=== PATIENT | female | born 1955 | race Caucasian/White ===

== ENCOUNTER 2017-12-03 10:01 | Emergency (ER) | payer MEDICARE, BC ==
[2017-12-03] MEDS: SOD CHLORIDE 0.9% 1,000 ML IV (10:21)
[2017-12-03] MEDS: LORAZEPAM 2 MG INJ IV (10:21)
[2017-12-03] MEDS: LEVETIRACETAM 1000 MG (PMX) 100 ML IVPB (10:23)
[2017-12-03 10:34] LABS: ADD MAN DIFF? NO
[2017-12-03 10:35] LABS: WHITE BLOOD COUNT 13.1 10^3/ul (4.8-10.8)
[2017-12-03 10:35] LABS: ABNORMAL IP MESSAGE 1; BASOPHIL # 0.1 10^3/ul (0.0-0.1); BASOPHILS % 0.8 % (0.0-2.0); EOSINOPHILS # 0.1 10^3/ul (0.0-0.5); EOSINOPHILS % 0.5 % (0.0-7.0); HEMATOCRIT 34.9 % (37.0-47.0); HEMOGLOBIN 11.9 g/dl (12.0-16.0); LYMPHOCYTES # 6.6 10^3/ul (0.8-2.9); LYMPHOCYTES % 50.5 % (15.0-51.0); MEAN CORPUSCULAR HEMOGLOBIN 30.7 pg (29.0-33.0); MEAN CORPUSCULAR HGB CONC 34.1 g/dl (32.0-37.0); MEAN CORPUSCULAR VOLUME 89.9 fl (82.0-101.0); MEAN PLATELET VOLUME 8.7 fl (7.4-10.4); MONOCYTE # 0.7 10^3/ul (0.3-0.9); MONOCYTES % 5.7 % (0.0-11.0); NEUTROPHIL # 5.5 10^3/ul (1.6-7.5); PLATELET COUNT 408 10^3/UL (140-415); RED BLOOD COUNT 3.88 10^6/ul (4.20-5.40); RED CELL DISTRIBUTION WIDTH 12.6 % (11.5-14.5)
[2017-12-03 10:36] LABS: POSITIVE DIFF @See below
[2017-12-03 10:50] LABS: INR 0.95; PROTIME 12.8 Sec (11.9-14.9)
[2017-12-03] MEDS: ONDANSETRON 4 MG INJ IV ×2 (11:06→14:35)
[2017-12-03] MEDS: HYDROmorphONE 1 MG/ML SYG IV ×2 (11:06→14:35)
[2017-12-03 12:04] LABS: ALANINE AMINOTRANSFERASE 27 IU/L (13-69); ALBUMIN 4.3 g/dl (3.3-4.9); ALBUMIN/GLOBULIN RATIO 1.72; ALKALINE PHOSPHATASE 106 IU/L (42-121); ANION GAP 21 (8-16); ASPARTATE AMINO TRANSFERASE 24 IU/L (15-46); BILIRUBIN,INDIRECT 0.2 mg/dl (0-1.1); BILIRUBIN,TOTAL 0.2 mg/dl (0.2-1.3); BLOOD UREA NITROGEN 12 mg/dl (7-20); CALCIUM 9.3 mg/dl (8.4-10.2); CARBON DIOXIDE 19 mmol/L (21-31); CHLORIDE 103 mmol/L (97-110); CREATININE 0.59 mg/dl (0.44-1.00); GLUCOSE 119 mg/dl (70-220); POTASSIUM 4.3 mmol/L (3.5-5.1); SODIUM 139 mmol/L (135-144); TOTAL PROTEIN 6.8 g/dl (6.1-8.1)
[2017-12-03 12:19] LABS: TROPONIN-I < 0.012 ng/ml (0.00-0.12)
== END 2017-12-03 15:32 | disposition home or self-care (01) ==
LOC: E/R 10:01
DX: R56.9 Unspecified convulsions (principal); R40.2252 Coma scale, best verbal response, oriented, at arrival to emergency department; R40.2142 Coma scale, eyes open, spontaneous, at arrival to emergency department; R40.2362 Coma scale, best motor response, obeys commands, at arrival to emergency department; R07.9 Chest pain, unspecified; Z85.118 Personal history of other malignant neoplasm of bronchus and lung; Z87.891 Personal history of nicotine dependence
CPT/HCPCS: 70450; 80053; 84484; 85025; 85610; 93005; 96374; 96375; 96376; 99285-25

== ENCOUNTER 2018-02-22 14:00 | Inpatient (IN) | payer MEDICARE, BC ==
[2018-02-22] MEDS: LORAZEPAM 2 MG INJ IV ×4 (14:24→22:07)
[2018-02-22] MEDS: SOD CHLORIDE 0.9% 1,000 ML IV ×2 (14:24→21:28)
[2018-02-22 14:32] LABS: ADD MAN DIFF? NO
[2018-02-22 14:34] LABS: BASOPHIL # 0.1 10^3/ul (0.0-0.1); BASOPHILS % 0.5 % (0.0-2.0); EOSINOPHILS # 0.1 10^3/ul (0.0-0.5); EOSINOPHILS % 0.6 % (0.0-7.0); HEMATOCRIT 38.5 % (37.0-47.0); HEMOGLOBIN 13.3 g/dl (12.0-16.0); LYMPHOCYTES # 4.9 10^3/ul (0.8-2.9); LYMPHOCYTES % 48.4 % (15.0-51.0); MEAN CORPUSCULAR HEMOGLOBIN 30.6 pg (29.0-33.0); MEAN CORPUSCULAR HGB CONC 34.5 g/dl (32.0-37.0); MEAN CORPUSCULAR VOLUME 88.7 fl (82.0-101.0); MEAN PLATELET VOLUME 9.3 fl (7.4-10.4); MONOCYTE # 0.7 10^3/ul (0.3-0.9); NEUTROPHIL # 4.3 10^3/ul (1.6-7.5); NEUTROPHILS % 43.1 % (39.0-77.0); PLATELET COUNT 329 10^3/UL (140-415); RED BLOOD COUNT 4.34 10^6/ul (4.20-5.40); RED CELL DISTRIBUTION WIDTH 12.6 % (11.5-14.5)
[2018-02-22 14:34] LABS: WHITE BLOOD COUNT 10.1 10^3/ul (4.8-10.8)
[2018-02-22 15:02] LABS: INR 0.95; PROTIME 12.8 Sec (11.9-14.9)
[2018-02-22 15:20] LABS: ALANINE AMINOTRANSFERASE 19 IU/L (13-69); ALBUMIN 4.6 g/dl (3.3-4.9); ALBUMIN/GLOBULIN RATIO 1.43; ALKALINE PHOSPHATASE 101 IU/L (42-121); ANION GAP 20 (8-16); ASPARTATE AMINO TRANSFERASE 22 IU/L (15-46); BILIRUBIN,INDIRECT 0.4 mg/dl (0-1.1); BILIRUBIN,TOTAL 0.4 mg/dl (0.2-1.3); BLOOD UREA NITROGEN 9 mg/dl (7-20); CALCIUM 9.9 mg/dl (8.4-10.2); CARBON DIOXIDE 20 mmol/L (21-31); CHLORIDE 106 mmol/L (97-110); CREATININE 0.43 mg/dl (0.44-1.00); GLUCOSE 113 mg/dl (70-220); POTASSIUM 4.1 mmol/L (3.5-5.1); SODIUM 142 mmol/L (135-144); TOTAL PROTEIN 7.8 g/dl (6.1-8.1)
[2018-02-22 15:22] LABS: PHENYTOIN (DILANTIN) < 3.0 ug/ml (10.0-20.0)
[2018-02-22] MEDS: ONDANSETRON 4 MG INJ IV ×3 (15:36→18:56)
[2018-02-22] MEDS: HYDROmorphONE 0.5 MG/0.5 ML SYG IV ×3 (15:43→18:56)
[2018-02-22] MEDS: PHENYTOIN 1,000 MG in SOD CHLORIDE 0.9% 80 ML IVPB (15:45)
[2018-02-22] MEDS: DEXAMETHASONE 10 MG/ML 1 ML INJ IV (16:25)
[2018-02-22] MEDS: CEFTRIAXONE 1 GM/50 ML (PMX) 50 ML IVPB (16:25)
[2018-02-22] MEDS: AZITHROMYCIN 500MG/NS (PMX) 250 ML IV (16:47)
[2018-02-22] MEDS ORDERED: ONDANSETRON 4 MG INJ IV ×2 (17:30→18:30)
[2018-02-22] MEDS ORDERED: ACETAMINOPHEN 325 MG TAB PO (17:30)
[2018-02-22] MEDS ORDERED: MAGNESIUM HYDROXIDE 30ML CUP PO (18:30)
[2018-02-22] MEDS ORDERED: ALBUTEROL 0.083% (NEB) 2.5 MG/3 ML AMP NEB (18:30)
[2018-02-22] MEDS ORDERED: DOCUSATE SODIUM 100 MG CAP PO (18:30)
[2018-02-22] MEDS ORDERED: NACL 0.9% 3 ML SYG IV (18:30)
[2018-02-22] MEDS ORDERED: LORAZEPAM 2 MG INJ IV (18:30)
[2018-02-22] MEDS: FAMOTIDINE 20 MG TAB PO (20:39)
[2018-02-22 20:49] LABS: ADD UMIC YES; UR ASCORBIC ACID NEGATIVE (NEGATIVE); UR BILIRUBIN (Dip) NEGATIVE (NEGATIVE); UR BLOOD (Dip) NEGATIVE (NEGATIVE); UR CLARITY CLEAR (CLEAR); UR COLOR YELLOW (YELLOW); UR GLUCOSE (Dip) NEGATIVE (NEGATIVE); UR KETONES (Dip) NEGATIVE (NEGATIVE); UR LEUKOCYTE ESTERASE (Dip) TRACE Leu/ul (NEGATIVE); UR NITRITE (Dip) NEGATIVE (NEGATIVE); UR RBC 0 /HPF (0-5); UR SQUAMOUS EPITHELIAL CELL FEW /HPF (FEW); UR TOTAL PROTEIN (Dip) NEGATIVE (NEGATIVE); UR UROBILINOGEN (Dip) NEGATIVE (NEGATIVE); UR WBC 2 /HPF (0-5)
[2018-02-22] MEDS: morphine 2 MG INJ IV (21:27)
[2018-02-22] MEDS: oxyCODONE (CR) 10 MG TAB [oxyCONTIN] PO (22:07)
[2018-02-22] MEDS: PHENYTOIN 100 MG INJ IV (22:09)
[2018-02-22] MEDS: CEFEPIME 2GM/50 ML (PMX) 50 ML IV (22:09)
[2018-02-23] MEDS: DEXAMETHASONE 4 MG/ML 1 ML INJ IV ×3 (00:35→12:25)
[2018-02-23] MEDS: PHENYTOIN 100 MG INJ IV ×2 (05:12→13:34)
[2018-02-23] MEDS: CEFEPIME 2GM/50 ML (PMX) 50 ML IV ×2 (05:12→13:34)
[2018-02-23] MEDS: HYDROmorphONE 0.5 MG/0.5 ML SYG IV (05:12)
[2018-02-23 07:51] LABS: ADD MAN DIFF? NO
[2018-02-23 07:58] LABS: BASOPHILS % 0.3 % (0.0-2.0); HEMATOCRIT 36.1 % (37.0-47.0); HEMOGLOBIN 12.5 g/dl (12.0-16.0); LYMPHOCYTES # 1.5 10^3/ul (0.8-2.9); LYMPHOCYTES % 18.9 % (15.0-51.0); MEAN CORPUSCULAR HEMOGLOBIN 30.5 pg (29.0-33.0); MEAN CORPUSCULAR HGB CONC 34.6 g/dl (32.0-37.0); MEAN PLATELET VOLUME 9.7 fl (7.4-10.4); MONOCYTE # 0.1 10^3/ul (0.3-0.9); MONOCYTES % 1.8 % (0.0-11.0); NEUTROPHIL # 6.2 10^3/ul (1.6-7.5); NEUTROPHILS % 78.4 % (39.0-77.0); PLATELET COUNT 318 10^3/UL (140-415); RED CELL DISTRIBUTION WIDTH 12.8 % (11.5-14.5)
[2018-02-23 07:58] LABS: WHITE BLOOD COUNT 7.9 10^3/ul (4.8-10.8)
[2018-02-23 08:21] LABS: ALBUMIN 4.4 g/dl (3.3-4.9); ANION GAP 17 (8-16); BLOOD UREA NITROGEN 9 mg/dl (7-20); CALCIUM 9.7 mg/dl (8.4-10.2); CARBON DIOXIDE 24 mmol/L (21-31); CHLORIDE 104 mmol/L (97-110); CREATININE 0.39 mg/dl (0.44-1.00); GLUCOSE 136 mg/dl (70-220); MAGNESIUM 1.8 mg/dl (1.7-2.5); PHOSPHORUS 3.5 mg/dl (2.5-4.9); POTASSIUM 4.1 mmol/L (3.5-5.1); SODIUM 141 mmol/L (135-144)
[2018-02-23] MEDS: FAMOTIDINE 20 MG TAB PO ×2 (08:39→20:22)
[2018-02-23] MEDS: ACETAMINOPHEN 325 MG TAB PO ×2 (08:43→16:54)
[2018-02-23] MEDS: LORAZEPAM 2 MG INJ IV (11:20)
[2018-02-23] MEDS: oxyCODONE (CR) 10 MG TAB [oxyCONTIN] PO (14:25)
[2018-02-23] MEDS: DEXAMETHASONE 4 MG TAB PO ×2 (17:18→20:22)
[2018-02-23] MEDS: CIPROFLOXACIN 250 MG TAB PO (17:24)
[2018-02-23] MEDS: PHENYTOIN 100 MG CAP PO (20:21)
[2018-02-23] MEDS: CEPHALEXIN 500 MG CAP PO (20:22)
[2018-02-23] MEDS: LORAZEPAM 0.5 MG TAB PO (20:22)
[2018-02-23] MEDS: HYDROCODONE/APAP (5/325) TAB PO (21:14)
[2018-02-24] MEDS: ACETAMINOPHEN 325 MG TAB PO ×2 (01:08→07:59)
[2018-02-24] MEDS: HYDROCODONE/APAP (5/325) TAB PO (06:09)
[2018-02-24 07:36] LABS: ADD MAN DIFF? NO
[2018-02-24 07:41] LABS: BASOPHILS % 0.1 % (0.0-2.0); HEMATOCRIT 37.4 % (37.0-47.0); HEMOGLOBIN 12.8 g/dl (12.0-16.0); LYMPHOCYTES # 1.9 10^3/ul (0.8-2.9); LYMPHOCYTES % 13.6 % (15.0-51.0); MEAN CORPUSCULAR HEMOGLOBIN 30.3 pg (29.0-33.0); MEAN CORPUSCULAR HGB CONC 34.2 g/dl (32.0-37.0); MEAN CORPUSCULAR VOLUME 88.4 fl (82.0-101.0); MEAN PLATELET VOLUME 10.2 fl (7.4-10.4); MONOCYTES % 6.8 % (0.0-11.0); NEUTROPHIL # 11.1 10^3/ul (1.6-7.5); NEUTROPHILS % 78.9 % (39.0-77.0); PLATELET COUNT 309 10^3/UL (140-415); RED BLOOD COUNT 4.23 10^6/ul (4.20-5.40); RED CELL DISTRIBUTION WIDTH 13.1 % (11.5-14.5)
[2018-02-24] MEDS: DEXAMETHASONE 4 MG TAB PO (07:59)
[2018-02-24] MEDS: PHENYTOIN 100 MG CAP PO (07:59)
[2018-02-24] MEDS: CEPHALEXIN 500 MG CAP PO (08:00)
[2018-02-24] MEDS: FAMOTIDINE 20 MG TAB PO (08:00)
[2018-02-24 08:08] LABS: ALBUMIN 4.1 g/dl (3.3-4.9); ANION GAP 19 (8-16); BLOOD UREA NITROGEN 12 mg/dl (7-20); CALCIUM 9.8 mg/dl (8.4-10.2); CARBON DIOXIDE 23 mmol/L (21-31); CHLORIDE 106 mmol/L (97-110); CREATININE 0.44 mg/dl (0.44-1.00); GLUCOSE 109 mg/dl (70-220); PHOSPHORUS 3.5 mg/dl (2.5-4.9); POTASSIUM 4.5 mmol/L (3.5-5.1); SODIUM 143 mmol/L (135-144)
[2018-02-24] MEDS: oxyCODONE 5 MG TAB PO (09:58)
== END 2018-02-24 13:28 | disposition home or self-care (01) | DRG 101 ==
LOC: E/R 14:00 → MS4 17:15
DX: R56.9 Unspecified convulsions (principal); N39.0 Urinary tract infection, site not specified; B96.89 Other specified bacterial agents as the cause of diseases classified elsewhere; Z85.118 Personal history of other malignant neoplasm of bronchus and lung; R60.9 Edema, unspecified
CPT/HCPCS: 36415; 70450; 70552; 71045; 80053; 80069; 80185; 81001; 83735; 85025; 85610; 85730; 87040; 87086; 96374; 96375; 96376; 99285-25

== ENCOUNTER 2018-07-28 14:46 | Emergency (ER) | payer MEDICARE, BC ==
[2018-07-28] MEDS ORDERED: ONDANSETRON 4 MG INJ (15:13)
[2018-07-28] MEDS: SOD CHLORIDE 0.9% 500 ML IV ×2 (15:46→16:54)
[2018-07-28] MEDS: ONDANSETRON 4 MG INJ IV (15:46)
[2018-07-28 15:54] LABS: ADD MAN DIFF? NO
[2018-07-28 15:55] LABS: BASOPHILS % 0.3 % (0.0-2.0); EOSINOPHILS % 0.1 % (0.0-7.0); HEMATOCRIT 36.3 % (37.0-47.0); HEMOGLOBIN 12.6 g/dl (12.0-16.0); LYMPHOCYTES # 1.3 10^3/ul (0.8-2.9); LYMPHOCYTES % 11.4 % (15.0-51.0); MEAN CORPUSCULAR HEMOGLOBIN 30.7 pg (29.0-33.0); MEAN CORPUSCULAR HGB CONC 34.7 g/dl (32.0-37.0); MEAN CORPUSCULAR VOLUME 88.5 fl (82.0-101.0); MEAN PLATELET VOLUME 9.1 fl (7.4-10.4); MONOCYTE # 0.8 10^3/ul (0.3-0.9); MONOCYTES % 6.6 % (0.0-11.0); NEUTROPHIL # 9.2 10^3/ul (1.6-7.5); NEUTROPHILS % 80.9 % (39.0-77.0); PLATELET COUNT 393 10^3/UL (140-415); RED CELL DISTRIBUTION WIDTH 12.5 % (11.5-14.5)
[2018-07-28 15:55] LABS: WHITE BLOOD COUNT 11.4 10^3/ul (4.8-10.8)
[2018-07-28] MEDS: morphine 4 MG/ML VIAL IV (15:55)
[2018-07-28 16:25] LABS: ANION GAP 9 (8-16); BLOOD UREA NITROGEN 15 mg/dl (7-20); CALCIUM 9.2 mg/dl (8.4-10.2); CARBON DIOXIDE 27 mmol/L (21-31); CHLORIDE 100 mmol/L (97-110); GLUCOSE 112 mg/dl (70-220); PHENYTOIN (DILANTIN) 3.1 ug/ml (10.0-20.0); POTASSIUM 4.4 mmol/L (3.5-5.1); SODIUM 132 mmol/L (135-144)
[2018-07-28] MEDS: HYDROmorphONE 1 MG/ML SYG IV (16:54)
[2018-07-28] MEDS: PHENYTOIN 1,000 MG in SOD CHLORIDE 0.9% 80 ML IVPB (17:14)
== END 2018-07-28 18:29 | disposition home or self-care (01) ==
LOC: E/R 14:46
DX: G40.909 Epilepsy, unspecified, not intractable, without status epilepticus (principal); R89.2 Abnormal level of other drugs, medicaments and biological substances in specimens from other organs, systems and tissues; Z85.841 Personal history of malignant neoplasm of brain; Z87.891 Personal history of nicotine dependence
CPT/HCPCS: 36415; 80048; 80185; 85025; 93005; 96374; 96375; 99284-25